=== PATIENT | male | born 1955 | race Hispanic/Latino ===

== ENCOUNTER 2022-01-20 05:43 | Emergency (ER) | payer OTHER ==
[2022-01-20 06:29] LABS: Absolute Lymphocytes (CBC) 2.2 K/uL (0.7-4.9); Hematocrit 50.3 % (39.6-49.0); Lymphocytes % 18.5 % (15.3-44.8); MCV 86.6 fL (80-100); MPV 8.3 fL (7.6-11.3); RBC Red Blood Cell Count 5.81 M/uL (4.33-5.43)
[2022-01-20 06:30] LABS: Protime INR 1.12
[2022-01-20 06:51] LABS: Potassium 3.3 mmol/L (3.5-5.1); Troponin High Sensitivity 13.7 pg/mL (<58.9)
--- NOTE | 2022-01-20 07:58 | RAD REPORT ---
EXAM DESCRIPTION: CT - Head Brain Wo Cont - 01/20/2022 7:45 am CLINICAL HISTORY: Dizziness COMPARISON: None. TECHNIQUE: Computed axial tomography of the head was obtained. IV contrast was not requested. All CT scans are performed using dose optimization technique as appropriate and may include automated exposure control or mA/KV adjustment according to patient size. FINDINGS: An intracranial bleed is not seen . The ventricles are normal in caliber. No significant hypodense areas within the brain visualized No extra-axial fluid collection is noted. Fluid within the sinuses/ mastoids is not seen. IMPRESSION: No acute intracranial abnormality is seen. If patient's symptoms persist MRI of the bra in would be recommended.
--- NOTE | 2022-01-20 08:04 | RAD REPORT ---
EXAM DESCRIPTION: CT - Angio Aorta For Dissection - 01/20/2022 7:45 am CLINICAL HISTORY: . Chest and abd pain COMPARISON: None TECHNIQUE: Computed tomography angiography of the chest, abdomen pelvis were obtained. 100 cc Isovue 370 was administered intravenously. Coronal and sagittal reconstruction were performed. MIP 3D reconstruction was performed All CT scans are performed using dose optimization technique as appropriate and may include automated exposure control or mA/KV adjustment according to patient size. FINDINGS: An aortic dissection is not seen. An aortic aneurysm is not displayed. The celiac, SMA and DARI are patent . A lung consolidation is not present. A pericardial effusion is not seen. A pleural effusion is not no anh. Fatty liver Spleen, pancreas,adrenals and kidneys demonstrate no significant abnormality. Moderate bilateral inguinal hernias contain fat. Small density within the gallbladder may indicate a gallstone. Gallbladder wall not thickened There no evidence diverticulitis. IMPRESSION: Negative for an aortic dissection.
--- NOTE | 2022-01-20 10:23 | ER ---
Nurse's Notes [facility] Name: Arnulfo Parra Age: 66 yrs Sex: Male : 1955 Arrival Date: 01/20/2022 Time: 05:51 Bed 13 Private MD: Diagnosis: Chest pain, unspecified;Essential (primary) hypertension Presentation: 01/20 06:05 Chief complaint: Patient states: BP running high x 3 days, felt lightheaded today with ke1 chest tightness that last around 15 seconds. Coronavirus screen: Vaccine status: Patient reports receiving the 2nd dose of the covid vaccine. Ebola Screen: No symptoms or risks identified at this time. Initial Sepsis Screen: Does the patient meet any 2 criteria? No. Patient's initial sepsis screen is negative. Does the patient have a suspected source of infection? No. Patient's initial sepsis screen is negative. Risk Assessment: Do you want to hurt yourself or someone else? Patient reports no desire to harm self or others. Onset of symptoms was January 17, 2022 at 00:00. 06:05 Method Of Arrival: Ambulatory ke1 06:05 Acuity: TRISTA 3 ke1 Triage Assessment: 06:09 General: Appears in no apparent distress. Behavior is appropriate for age. Pain: Denies ke1 pain. Historical: - Allergies: 06:08 No Known Allergies; ke1 - PMHx: 06:08 Hypertensive disorder; ke1 - Immunization history:: Client reports receiving the 2nd dose of the Covid vaccine. - Social history:: Smoking status: Patient denies any tobacco usage or history of. - Family history:: not pertinent. - Hospitalizations: : No recent hospitalization is reported. Screenin:09 [facility] ED Fall Risk Assessment (Adult) History of falling in the last 3 months, ke1 including since admission No falls in past 3 months (0 pts) Confusion or Disorientation No (0 pts) Intoxicated or Sedated No (0 pts) Impaired Gait No (0 pts) Mobility Assist Device Used No (0 pt) Altered Elimination No (0 pt) Score/Fall Risk Level 0 - 2 = Low Risk. Humpty Dumpty Scale Fall Assessment Tool (age< 18yrs) Age 13 years and above (1 pt) Gender Male (2 pts) Diagnosis Other diagnosis (1 pt) Cognitive Impairments Oriented to own ability (1 pt) Environmental Factors Outpatient area (1 pt) Response to Surgery/Sedation/Anesthesia More than 48 hours/None (1 pt) Medication Usage Other medications/ None (1 pt) Fall Risk Score/ Level Low Fall Risk: < 11 points. Abuse screen: Denies threats or abuse. Nutritional screening: No deficits noted. Tuberculosis screening: No symptoms or risk factors identified. Fall Risk No fall in past 12 months (0 pts). No secondary diagnosis (0 pts). No IV (0 pts). Ambulatory Aid- None/Bed Rest/Nurse Assist (0 pts). Gait- Normal/Bed Rest/Wheelchair (0 pts) Mental Status- Oriented to own ability (0 pts). Total Domingo Fall Scale indicates No Risk (0-24 pts). Assessment: 06:55 Reassessment: Patient denies pain at this time. Patient states feeling better. Patient ke1 states symptoms have improved. 07:33 Reassessment: Patient appears in no apparent distress at this time. Patient and/or db family updated on plan of care and expected duration. Pain level reassessed. Patient is alert, oriented x 3, equal unlabored respirations, skin warm/dry/pink. PATIENT TO CT. General: Appears in no apparent distress. comfortable, Behavior is calm, cooperative, appropriate for age, quiet. Pain: Denies pain. Neuro: No deficits noted. Level of Consciousness is awake, alert, obeys commands, Oriented to person, place, time, situation, Appropriate for age Moves all extremities. Speech is normal, Pupils are PERRLA. Cardiovascular: No deficits noted. Respiratory: Airway is patent Respiratory effort is even, unlabored, Respiratory pattern is regular, symmetrical. GI: No deficits noted. No signs and/or symptoms were reported involving the gastrointestinal system. : No deficits noted. No signs and/or symptoms were reported regarding the genitourinary system. 08:30 Reassessment: Patient appears in no apparent distress at this time. No changes from db previously documented assessment. Patient and/or family updated on plan of care and expected duration. Pain level reassessed. Patient is alert, oriented x 3, equal unlabored respirations, skin warm/dry/pink. 10:28 Reassessment: Patient appears in no apparent distress at this time. No changes from db previously documented assessment. Patient and/or family updated on plan of care and expected duration. Pain level reassessed. Patient is alert, oriented x 3, equal unlabored respirations, skin warm/dry/pink. Patient states feeling better. Vital Signs: 06:05 BP 149 / 97; Pulse 99; Resp 17; Temp 97.7(O); Pulse Ox 96% on R/A; Weight 104.33 kg; ke1 Height 5 ft. 7 in. (170.18 cm); Pain 0/10; 06:55 BP 142 / 102; Pulse 95; Resp 15; Pulse Ox 97% ; Pain 0/10; ke1 07:00 BP 134 / 100; Pulse 94; Resp 16; Temp 99.2(O); Pulse Ox 97% on R/A; Pain 0/10; db 08:12 BP 141 / 93; Pulse 83; Resp 16; Pulse Ox 97% on R/A; db 09:30 BP 146 / 98; Pulse 87; Resp 18; Pulse Ox 98% on R/A; db 06:05 Body Mass Index 36.02 (104.33 kg, 170.18 cm) ke1 ED Course: 05:51 Patient arrived in ED. bp1 05:51 Bruce Bliss MD is Attending Physician. rn 06:05 Marsha Rivero RN is Primary Nurse. ke1 06:08 Triage completed. ke1 06:10 Arm band placed on left wrist. ke1 06:10 Placed in gown. Bed in low position. Call light in reach. ke1 06:19 XRAY Chest (1 view) In Process Unspecified. EDMS 06:23 Inserted saline lock: 20 gauge in right forearm, using aseptic technique. ke1 06:23 Troponin HS Sent. ke1 06:23 PT-INR Sent. ke1 06:23 NT PRO-BNP Sent. ke1 06:23 CBC with Diff Sent. ke1 06:23 Basic Metabolic Panel Sent. ke1 07:47 Angio Aorta For Dissection In Process Unspecified. EDMS 07:47 Head Brain Wo Cont In Process Unspecified. EDMS 09:24 Primary Nurse role handed off by Marsha Rivero, RENAY db 09:24 Baylee Poe, RENAY is Primary Nurse. db 10:12 Attending Physician role handed off by Bruce Bliss MD ms3 10:12 Jez Bloom DO is Attending Physician. ms3 10:22 Farhan Nguyễn MD is Referral Physician. ms3 10:41 No provider procedures requiring assistance completed. IV discontinued, intact, db bleeding controlled, No redness/swelling at site. Administered Medications: No medications were administered Medication: 10:29 VIS not applicable for this client. db Outcome: 10:23 Discharge ordered by . ms3 10:41 Discharged to home ambulatory, with significant other. db 10:41 Condition: stable 10:41 Discharge instructions given to patient, significant other, Instructed on discharge instructions, follow up and referral plans. Demonstrated understanding of instructions, follow-up care, medications, Prescriptions given X 1. 10:42 Patient left the ED. db Signatures: Dispatcher [employer] EDMS Bruce Bliss MD MD rn Jez Bloom DO DO ms3 Jaz Smart Kouassi, RN RN ke1 Baylee Poe, RN RN db
--- NOTE | 2022-01-20 10:23 | EDPHYS ---
Physician Documentation [facility] Name: Arnulfo Parra Age: 66 yrs Sex: Male : 1955 Arrival Date: 01/20/2022 Time: 05:51 Bed 13 Private MD: ED Physician Jez Bloom HPI: 01/20 06:47 This 66 yrs old Male presents to ER via Ambulatory with complaints of High rn Blood Pressure. 06:47 The patient has elevated blood pressure and discovered this at home. Onset: The rn symptoms/episode began/occurred 2 day(s) ago. Modifying factors: The symptoms are aggravated by discontinuation of meds, The symptoms are alleviated by nothing. Associated signs and symptoms: Pertinent positives: chest pain, headache, Pertinent negatives: dizziness, nausea, vomiting, weakness. Severity of symptoms: At its worst the blood pressure was moderate, in the emergency department the blood pressure is unchanged. The patient has experienced similar episodes in the past. The patient has not recently seen a physician. Pt reports off of his BP meds for 2 years, recently noticed increase in BP for last 2 days. Reports chest pain that is intermittent and lasts approx 15 sec, no radiation, no sob. Also reports headache and normally doesn't get headache. No focal neuro complaints. No trauma. . Historical: - Allergies: 06:08 No Known Allergies; ke1 - PMHx: 06:08 Hypertensive disorder; ke1 - Immunization history:: Client reports receiving the 2nd dose of the Covid vaccine. - Social history:: Smoking status: Patient denies any tobacco usage or history of. - Family history:: not pertinent. - Hospitalizations: : No recent hospitalization is reported. ROS: 06:47 Constitutional: Negative for fever, chills, and weight loss, Eyes: Negative for injury, rn pain, redness, and discharge, Neck: Negative for injury, pain, and swelling, Cardiovascular: + chest pain Respiratory: Negative for shortness of breath, cough, wheezing, and pleuritic chest pain, Abdomen/GI: Negative for abdominal pain, nausea, vomiting, diarrhea, and constipation, Back: Negative for injury and pain, : Negative for injury, bleeding, discharge, and swelling, MS/Extremity: Negative for injury and deformity, Skin: Negative for injury, rash, and discoloration, Neuro: + headache Exam: 06:47 Constitutional: This is a well developed, well nourished patient who is awake, alert, rn and in no acute distress. Head/Face: Normocephalic, atraumatic. Eyes: Pupils equal round and reactive to light, extra-ocular motions intact. Periorbital areas with no swelling, redness, or edema. Cardiovascular: Regular rate and rhythm. No pulse deficits. Respiratory: No increased work of breathing, no retractions or nasal flaring. Abdomen/GI: Soft, non-tender Skin: Warm, dry MS/ Extremity: Pulses equal, no cyanosis. Neuro: Awake and alert, GCS 15, oriented to person, place, time, and situation. Cranial nerves II-XII grossly intact. Motor strength 5/5 in all extremities. Sensory grossly intact. Cerebellar exam normal. Vital Signs: 06:05 BP 149 / 97; Pulse 99; Resp 17; Temp 97.7(O); Pulse Ox 96% on R/A; Weight 104.33 kg; ke1 Height 5 ft. 7 in. (170.18 cm); Pain 0/10; 06:55 BP 142 / 102; Pulse 95; Resp 15; Pulse Ox 97% ; Pain 0/10; ke1 07:00 BP 134 / 100; Pulse 94; Resp 16; Temp 99.2(O); Pulse Ox 97% on R/A; Pain 0/10; db 08:12 BP 141 / 93; Pulse 83; Resp 16; Pulse Ox 97% on R/A; db 09:30 BP 146 / 98; Pulse 87; Resp 18; Pulse Ox 98% on R/A; db 06:05 Body Mass Index 36.02 (104.33 kg, 170.18 cm) [facility] MDM: 05:52 Patient medically screened. rn 07:00 Transition of care: Care assumed from Bruce Bliss MD. ms3 10:20 Data reviewed: vital signs, nurses notes, lab test result(s), EKG, radiologic studies, ms3 and as a result, I will discharge patient. Counseling: I had a detailed discussion with the patient and/or guardian regarding: the historical points, exam findings, and any diagnostic results supporting the discharge/admit diagnosis, lab results, radiology results, the need for outpatient follow up, to return to the emergency department if symptoms worsen or persist or if there are any questions or concerns that arise at home. ED course: Discussed labs, EKG, chest x-ray, CT with the patient and his . Patient to follow-up with Dr. Nguyễn in 2 to 3 days. Patient to follow-up with primary care physician in 2 to 3 days. Patient's prescription for lisinopril/hydrochlorothiazide 20/25 refilled for 20 days. Patient is understand and agree with plan. All questions were answered. Return precautions discussed to include worsening symptoms, chest pain, nausea, vomiting, shortness of breath, or any other concerns. 01/20 06:06 Order name: Basic Metabolic Panel; Complete Time: 06:58 rn 01/20 06:06 Order name: CBC with Diff; Complete Time: 06:58 rn 01/20 06:06 Order name: NT PRO-BNP; Complete Time: 06:58 rn 01/20 06:06 Order name: PT-INR; Complete Time: 06:58 rn 01/20 06:06 Order name: Troponin HS; Complete Time: 06:58 rn 01/20 06:06 Order name: XRAY Chest (1 view) rn 01/20 06:06 Order name: EKG; Complete Time: 06:07 rn 01/20 06:06 Order name: Cardiac monitoring; Complete Time: 06:11 rn 01/20 06:06 Order name: EKG - Nurse/Tech; Complete Time: 06:11 rn 01/20 07:14 Order name: Angio Aorta For Dissection; Complete Time: 10:12 EDMS 01/20 07:16 Order name: Head Brain Wo Cont; Complete Time: 10:12 EDMS 01/20 06:06 Order name: IV Saline Lock; Complete Time: 06:23 rn 01/20 06:06 Order name: Labs collected and sent; Complete Time: 06:23 rn 01/20 06:06 Order name: O2 Per Protocol; Complete Time: 06:11 rn 01/20 06:06 Order name: O2 Sat Monitoring; Complete Time: 06:11 rn Administered Medications: No medications were administered Disposition Summary: 01/20/22 10:23 Discharge Ordered Location: Home ms3 Condition: Stable ms3 Diagnosis - Chest pain, unspecified ms3 - Essential (primary) hypertension ms3 Followup: ms3 - With: Farhan Nguyễn MD - When: 2 - 3 days - Reason: Recheck today's complaints Followup: ms3 - With: Private Physician - When: 2 - 3 days - Reason: Recheck today's complaints Discharge Instructions: - Discharge Summary Sheet ms3 - Nonspecific Chest Pain, Adult ms3 - Hypertension, Adult ms3 Forms: - Medication Reconciliation Form ms3 - Thank You Letter ms3 - Antibiotic Education ms3 - Prescription Opioid Use ms3 Prescriptions: - Lisinopril-Hydrochlorothiazide 20-25 mg Oral Tablet - take 1 tablet by ORAL route once daily; 20 tablet; Refills: 0, Product ms3 Selection Permitted Signatures: Dispatcher [employer] EDMS Bruce Bliss MD MD rn Jez Bloom DO DO ms3 Marsha Rivero RN RN ke1 Corrections: (The following items were deleted from the chart) 07:14 07:14 CT-HEAD/BRAIN W/O CONTRAST ordered. EDMS EDMS
[2022-01-20 11:06] VITALS: TEMP 99.2
[2022-01-20 11:09] VITALS: BP 146/98; O2SAT 98
--- NOTE | 2022-01-20 14:56 | EKG ---
Test Date: 2022-01-20 Test Time: 06:01:29 Spindle Carver: STEPHANIE MEASUREMENT RESULTS: Intervals: Rate: 96 [place]: 170 QRSD: 86 QT: 350 QTc: 442 [place]: P: 49 NJ: 170 QRS: 12 T: 33 INTERPRETIVE STATEMENTS: Sinus rhythm with occasional premature ventricular complexes Otherwise normal ECG No previous ECG available for comparison Electronically Signed On 01-20-22 14:54:55 FREIGHT CONDUCTOR by Farhan Nguyễn
--- NOTE | 2022-01-20 15:12 | RAD REPORT ---
EXAM DESCRIPTION: RAD - Chest Single View - 01/20/2022 6:17 am CLINICAL HISTORY: The patient is 66 years old and is Male; HTN TECHNIQUE: Single view of the chest. COMPARISON: No relevant prior studies available. FINDINGS: Lungs: No pulmonary vascular congestion or consolidation. Pleural space: Unremarkable. No pneumothorax. Heart: Unremarkable. No cardiomegaly. Mediastinum: Unremarkable. Bones/joints: No acute fracture visualized. Old healed fracture right clavicle. Upper abdomen: No free air in the visualized upper abdomen. IMPRESSION: No acute cardiopulmonary process identified. Electronically signed by: Annamaria Carter MD 01/20/2022 6:29 AM AGRONOMY INSTRUCTOR Due to temporary technical issues with the PACS/Fluency reporting system, reports are being signed by the in house radiologists without review as a courtesy to insure prompt reporting. The interpreting radiologist is fully responsible for the content of the report.
== END 2022-01-20 10:42 | disposition home or self-care (01) ==
LOC: ER 05:43
DX: R07.89 Other chest pain (principal); I10 Essential (primary) hypertension
CPT/HCPCS: 93005; 85025; 80048; 36415; 85610; 84484; 83880; 70450; 71275; 74175; 71045; Q9967; 99284

== ENCOUNTER 2022-06-27 18:04 | Emergency (ER) | payer OTHER ==
--- NOTE | 2022-06-27 18:34 | RAD REPORT ---
EXAM DESCRIPTION: RAD - Chest Single View - 06/27/2022 6:26 pm CLINICAL HISTORY: nausea, malaise Chest pain. COMPARISON: <Comparisons> FINDINGS: Portable technique limits examination quality. The lungs are grossly clear. The heart is normal in size. No displaced fractures. IMPRESSION: No acute intrathoracic process suspected.
[2022-06-27] MEDS ORDERED: NA CHLORIDE 0.9% 250 ML ONE (18:45)
[2022-06-27] MEDS ORDERED: PROMETHAZINE INJ 25 MG/ML AMP ONE (18:45)
[2022-06-27] MEDS ORDERED: MORPHINE 4 MG/ML SYR ONE (18:46)
[2022-06-27 18:47] LABS: Absolute Lymphocytes (CBC) 1.2 K/uL (0.7-4.9); Lymphocytes % 8.5 % (15.3-44.8); MCV 88.5 fL (80-100); MPV 8.9 fL (7.6-11.3); RBC Red Blood Cell Count 5.43 M/uL (4.33-5.43)
[2022-06-27 18:48] LABS: Protime INR 1.06
[2022-06-27 19:00] LABS: Albumin 4.8 g/dL (3.4-5.0); Bilirubin Direct 0.3 mg/dL (0-0.2); Bilirubin Indirect, Calculated 0.6 mg/dL (0.2-0.8); Bilirubin Total 0.9 mg/dL (0.2-1.0); Protein, Total 8.3 g/dL (6.4-8.2); Troponin High Sensitivity 6.2 pg/mL (<58.9)
--- NOTE | 2022-06-27 19:04 | RAD REPORT ---
EXAM DESCRIPTION: CT - Stone Protocol - 06/27/2022 6:55 pm CLINICAL HISTORY: Flank pain. FLANK PAIN COMPARISON: No comparisons TECHNIQUE: Axial images were obtained without oral or IV contrast. Lack of contrast limits solid org an and vascular assessment. The [id number] spans the entirety of the system partially obscuring uppermost abdomen and lung bases. Coronal reformatted images were obtained and reviewed. All CT scans are performed using dose optimization technique as appropriate and may include automated exposure control or mA/KV adjustment according to patient size. FINDINGS: The lower lung aguiar are clear. Small hiatal hernia. Imaged portions of the liver and spleen show no suspicious findings on non-contrast imaging. The panc reas and adrenal glands are normal. No pathologic lymphadenopathy in the abdomen or pelvis. 7 mm stone right UVJ results in moderate right hydroureter and hydronephrosis. Additional small calcu li left kidney inferiorly. No left-sided hydronephrosis. No bowel obstruction, free air, free fluid or abscess. Normal appendix noted.Small bilateral fat cont aining inguinal hernias. Mild lumbar degenerative changes. IMPRESSION: 7 mm stone right UVJ resulting in moderate right hydronephrosis. Nonobstructing left renal calculus inferiorly.
[2022-06-27] MEDS ORDERED: TAMSULOSIN 0.4 MG SR CAP ONE (19:22)
[2022-06-27] MEDS ORDERED: KETOROLAC 30 MG/ML INJ ONE (19:22)
[2022-06-27] MEDS ORDERED: KCL 20 MEQ/100 mL IVPB 100 ML IV ONE (19:23)
[2022-06-27] MEDS ORDERED: NA CHLORIDE 0.9% 1,000 ML ONE (19:23)
--- NOTE | 2022-06-27 21:54 | EDPHYS ---
Physician Documentation [facility] Name: Arnulfo Parra Age: 67 yrs Sex: Male : 1955 Arrival Date: 06/27/2022 Time: 18:04 Bed 8 Private MD: ED Physician Bruce Bliss HPI: 06/27 20:32 This 67 yrs old Male presents to ER via Ambulatory with complaints of Back snw Pain, Nausea, Dizziness. 20:32 The patient presents with pain and tenderness, and weakness. The symptoms are located snw in the low back. Onset: The symptoms/episode began/occurred gradually, 1 week(s) ago, and became persistent. The problem was sustained being tx for UTI. Severity of symptoms: At their worst the symptoms were moderate, severe. The patient has experienced similar episodes in the past. Historical: - Allergies: 18:16 Amoxicillin; hb - Home Meds: 18:15 None [Active]; hb - PMHx: 18:15 Hypertensive disorder; hb - PSHx: 18:15 None; hb - Immunization history:: Adult Immunizations up to date. - Social history:: Smoking status: Patient denies any tobacco usage or history of. ROS: 18:21 Constitutional: Negative for fever, chills, and weight loss, Eyes: Negative for injury, snw pain, redness, and discharge, ENT: Negative for injury, pain, and discharge, Neck: Negative for injury, pain, and swelling, Cardiovascular: Negative for chest pain, palpitations, and edema, Respiratory: Negative for shortness of breath, cough, wheezing, and pleuritic chest pain, : Negative for injury, bleeding, discharge, and swelling, MS/Extremity: Negative for injury and deformity, Skin: Negative for injury, rash, and discoloration, Neuro: Negative for headache, weakness, numbness, tingling, and seizure, Psych: Negative for depression, anxiety, suicide ideation, homicidal ideation, and hallucinations. 18:21 Abdomen/GI: Positive for abdominal pain, nausea, vomiting. 18:21 Back: Positive for flank pain, on the right, radiated pain, of the right low back. Exam: 18:17 Head/Face: Normocephalic, atraumatic. Eyes: Pupils equal round and reactive to light, snw extra-ocular motions intact. Lids and lashes normal. Conjunctiva and sclera are non-icteric and not injected. Cornea within normal limits. Periorbital areas with no swelling, redness, or edema. ENT: Nares patent. No nasal discharge, no septal abnormalities noted. Tympanic membranes are normal and external auditory canals are clear. Oropharynx with no redness, swelling, or masses, exudates, or evidence of obstruction, uvula midline. Mucous membranes moist. Neck: Trachea midline, no thyromegaly or masses palpated, and no cervical lymphadenopathy. Supple, full range of motion without nuchal rigidity, or vertebral point tenderness. No Meningismus. Chest/axilla: Normal chest wall appearance and motion. Nontender with no deformity. No lesions are appreciated. Cardiovascular: Regular rate and rhythm with a normal S1 and S2. No gallops, murmurs, or rubs. Normal PMI, no JVD. No pulse deficits. Respiratory: Lungs have equal breath sounds bilaterally, clear to auscultation and percussion. No rales, rhonchi or wheezes noted. No increased work of breathing, no retractions or nasal flaring. 18:17 Skin: Warm, dry with normal turgor. Pale color with no rashes, no lesions, and no evidence of cellulitis. MS/ Extremity: Pulses equal, no cyanosis. Neurovascular intact. Full, normal range of motion. Neuro: Awake and alert, GCS 15, oriented to person, place, time, and situation. Cranial nerves II-XII grossly intact. Motor strength 5/5 in all extremities. Sensory grossly intact. Cerebellar exam normal. Normal gait. Psych: Awake, alert, with orientation to person, place and time. Behavior, mood, and affect are within normal limits. 18:17 Constitutional: The patient appears alert, anxious, pale, uncomfortable. 18:17 Abdomen/GI: Inspection: abdomen appears normal, Palpation: moderate abdominal tenderness, in the posterior aspect of right lateral abdomen and right lower quadrant. 18:17 Back: pain, that is moderate, of the right low back. Vital Signs: 18:15 BP 191 / 93; Pulse 74; Resp 18; Temp 97.8(O); Pulse Ox 99% on R/A; Weight 99.79 kg; hb Height 5 ft. 7 in. ; Pain 10/10; 18:55 BP 166 / 69; Pulse 78; Resp 18; Pulse Ox 100% on R/A; Pain 10/10; mb9 18:15 Body Mass Index 34.46 (99.79 kg, 170.18 cm) hb 18:15 Pain Scale: Adult hb 18:55 Pain Scale: Adult mb9 MDM: 18:09 Patient medically screened. snw 18:22 Data reviewed: vital signs, nurses notes. Counseling: I had a detailed discussion with shannan the patient and/or guardian regarding: the historical points, exam findings, and any diagnostic results supporting the discharge/admit diagnosis, the presence of at least one elevated blood pressure reading (>120/80) during this emergency department visit. 21:34 Differential diagnosis: Osteoporosis Ureterolithiasis. Response to treatment: the [facility] patient's symptoms have markedly improved after treatment. 21:52 ED course: 2100 up to void, did not collect urine. snw 06/27 18:17 Order name: Basic Metabolic Panel; Complete Time: 19:04 snw 06/27 18:17 Order name: CBC with Diff; Complete Time: 18:56 snw 06/27 18:17 Order name: LFT's; Complete Time: 19:04 snw 06/27 18:17 Order name: Magnesium; Complete Time: 19:04 snw 06/27 18:17 Order name: NT PRO-BNP; Complete Time: 19:04 snw 06/27 18:17 Order name: PT-INR; Complete Time: 18:50 snw 06/27 18:17 Order name: Troponin HS; Complete Time: 19:04 snw 06/27 21:52 Order name: Urine W/Microscopic (UAM) w 06/27 18:17 Order name: XRAY Chest (1 view); Complete Time: 18:42 snw 06/27 18:17 Order name: CT Stone Protocol; Complete Time: 19:06 snw 06/27 18:17 Order name: EKG; Complete Time: 18:18 snw 06/27 18:17 Order name: Cardiac monitoring; Complete Time: 18:19 snw 06/27 18:17 Order name: EKG - Nurse/Tech; Complete Time: 18:35 snw 06/27 18:17 Order name: IV Saline Lock; Complete Time: 18:35 snw 06/27 18:17 Order name: Labs collected and sent; Complete Time: 18:35 snw 06/27 18:17 Order name: O2 Per Protocol; Complete Time: 18: snw 06/27 18:17 Order name: O2 Sat Monitoring; Complete Time: 18: snw EC:30 Rate is 73 beats/min. Rhythm is irregular. QRS [place] is Normal. MT interval is normal. snw Clinical impression: NSR w/ Non-specific ST/T Changes. Administered Medications: 18:38 Drug: Promethazine IVP 25 mg Route: IVP; Site: right antecubital; mb9 19:35 Follow up: Response: No adverse reaction lg3 18:38 Drug: NS 0.9% IV 250 ml Route: IV; Rate: bolus; Site: right antecubital; mb9 22:10 Follow up: IV Status: Completed infusion; IV Intake: 1000ml kd3 18:42 Drug: morphine IVP or IV 4 mg Route: IVP; Infused Over: 4 mins; Site: right antecubital;mb9 19:36 Follow up: Response: No adverse reaction lg3 19:35 Drug: Potassium Chloride IV 20 mEq Route: IV; Rate: calculated rate; Site: right lg3 antecubital; 21:14 Follow up: Response: No adverse reaction; IV Status: Completed infusion; IV Intake: vc1 100ml 19:35 Drug: Flomax PO 0.4 mg Route: PO; lg3 20:42 Follow up: Response: No adverse reaction lg3 19:35 Drug: Ketorolac IVP 30 mg Route: IVP; Site: right antecubital; lg3 20:42 Follow up: Response: No adverse reaction; Marked relief of symptoms lg3 19:35 Drug: NS 0.9% IV 1000 ml Route: IV; Rate: 1 bolus; Site: right antecubital; lg3 20:42 Follow up: IV Status: Completed infusion; IV Intake: 1000ml lg3 19:35 Drug: Ondansetron IVP 4 mg Route: IVP; Site: right antecubital; lg3 20:42 Follow up: Response: No adverse reaction; Marked relief of symptoms lg3 Disposition Summary: 06/27/22 21:53 Discharge Ordered Location: Home snw Condition: Stable snw Diagnosis - Hydronephrosis with renal and ureteral calculous obstruction snw - Hypokalemia snw Followup: snw - With: Private Physician - When: 2 - 3 days - Reason: Recheck today's complaints, Continuance of care, Re-evaluation by your physician Discharge Instructions: - Discharge Summary Sheet snw - Renal Colic snw - Hydronephrosis snw - Dietary Guidelines to Help Prevent Kidney Stones snw - Rehydration, Adult snw Forms: - Medication Reconciliation Form snw - Thank You Letter snw - Antibiotic Education snw - Prescription Opioid Use snw Prescriptions: - tamsulosin 0.4 mg Oral capsule - take 1 capsule by ORAL route every day at bedtime; 15 capsule; Refills: 0, snw Product Selection Permitted - Cipro 500 mg Oral Tablet - take 1 tablet by ORAL route every 12 hours for 7 days; 14 tablet; Refills: 0, snw Product Selection Permitted - promethazine 25 mg Oral Tablet - take 1 tablet by ORAL route every 6 hours As needed; 20 tablet; Refills: 0, snw Product Selection Permitted Signatures: Dispatcher [employer] EDMS Kelley No, JUTE BAG CLIPPER-C JUTE BAG CLIPPER-Csnw Rosalva Ledesma, RN RN Inés Gayle RN RN lg3 Agnieszka Hendrix RN RN mb9 Marnie Johnson RN kd3 Celine Martínez RN vc1 Corrections: (The following items were deleted from the chart) 18:16 18:15 Allergies: No Known Allergies; hb hb 18:16 18:15 Allergies: PENICILLINS; hb hb
--- NOTE | 2022-06-27 21:54 | ER ---
Nurse's Notes [facility] Name: Arnulfo Parra Age: 67 yrs Sex: Male : 1955 Arrival Date: 06/27/2022 Time: 18:04 Bed 8 Private MD: Diagnosis: Hydronephrosis with renal and ureteral calculous obstruction;Hypokalemia Presentation: 06/27 18:14 Chief complaint: Sudden onset back pain that radiates to lower abdomen and nausea this afternoon. Coronavirus screen: At this time, the client does not indicate any symptoms associated with coronavirus-19. Ebola Screen: No symptoms or risks identified at this time. Initial Sepsis Screen: Does the patient meet any 2 criteria? No. Patient's initial sepsis screen is negative. Does the patient have a suspected source of infection? No. Patient's initial sepsis screen is negative. Risk Assessment: Do you want to hurt yourself or someone else? Patient reports no desire to harm self or others. Onset of symptoms was June 27, 2022. 18:14 Method Of Arrival: Ambulatory hb 18:14 Acuity: TRISTA 3 hb Historical: - Allergies: 18:16 Amoxicillin; hb - Home Meds: 18:15 None [Active]; hb - PMHx: 18:15 Hypertensive disorder; hb - PSHx: 18:15 None; hb - Immunization history:: Adult Immunizations up to date. - Social history:: Smoking status: Patient denies any tobacco usage or history of. Screenin:35 [facility] ED Fall Risk Assessment (Adult) History of falling in the last 3 months, mb9 including since admission No falls in past 3 months (0 pts) Confusion or Disorientation No (0 pts) Intoxicated or Sedated No (0 pts) Impaired Gait No (0 pts) Mobility Assist Device Used No (0 pt) Altered Elimination No (0 pt) Score/Fall Risk Level 0 - 2 = Low Risk Oriented to surroundings, Maintained a safe environment, Educated pt \T\ family on fall prevention, incl call for assistance when getting out of bed. Abuse screen: Denies threats or abuse. Nutritional screening: No deficits noted. Tuberculosis screening: No symptoms or risk factors identified. Assessment: 18:53 General: Appears uncomfortable, Behavior is cooperative, appropriate for age. Pain: mb9 Complains of pain in right lower quadrant Pain radiates to right low back and posterior aspect of right lateral abdomen Pain currently is 10 out of 10 on a pain scale. Quality of pain is described as gnawing, Pain began suddenly, Is continuous. Neuro: Lao Agitation-Sedation Scale (RASS): 0 - Alert and Calm Level of Consciousness is awake, alert, obeys commands, Oriented to person, place, time, situation, Appropriate for age. Cardiovascular: Patient's skin is warm and dry. Respiratory: Airway is patent Respiratory effort is even, unlabored, Respiratory pattern is regular, symmetrical. GI: Abdomen is round non-distended, Bowel sounds present X 4 quads. Abd is soft Abdomen is tender to palpation in right lower quadrant Reports flatulence, gaseousness. Derm: Skin is pink, warm \T\ dry. Musculoskeletal: Range of motion: intact in all extremities. 19:36 General: Appears in no apparent distress. uncomfortable, Behavior is calm, cooperative. lg3 Pain: Complains of pain in right low back and right lower quadrant and posterior aspect of right lateral abdomen Pain currently is 8 out of 10 on a pain scale. Neuro: No deficits noted. Lao Agitation-Sedation Scale (RASS): 0 - Alert and Calm Level of Consciousness is awake, alert, obeys commands, Oriented to person, place, time, situation. Cardiovascular: No deficits noted. Denies chest pain, shortness of breath, Capillary refill < 3 seconds Clubbing of nail beds is absent JVD is absent Patient's skin is warm and dry. Respiratory: No deficits noted. Airway is patent Respiratory effort is even, unlabored, Respiratory pattern is regular, symmetrical. GI: Abdomen is round non-distended, Reports lower abdominal pain, cramping, gaseousness. : No deficits noted. EENT: No deficits noted. No signs and/or symptoms were reported regarding the EENT system. Derm: No deficits noted. No signs and/or symptoms reported regarding the dermatologic system. Skin is intact, is healthy with good turgor, Skin is dry, Skin is normal. Musculoskeletal: No deficits noted. No signs and/or symptoms reported regarding the musculoskeletal system. Circulation, motion, and sensation intact. Range of motion: intact in all extremities. 20:35 Reassessment: Patient appears in no apparent distress at this time. No changes from lg3 previously documented assessment. Patient and/or family updated on plan of care and expected duration. Pain level reassessed. Patient is alert, oriented x 3, equal unlabored respirations, skin warm/dry/pink. Patient states feeling better. Vital Signs: 18:15 BP 191 / 93; Pulse 74; Resp 18; Temp 97.8(O); Pulse Ox 99% on R/A; Weight 99.79 kg; hb Height 5 ft. 7 in. ; Pain 10/10; 18:55 BP 166 / 69; Pulse 78; Resp 18; Pulse Ox 100% on R/A; Pain 10/10; mb9 18:15 Body Mass Index 34.46 (99.79 kg, 170.18 cm) hb 18:15 Pain Scale: Adult hb 18:55 Pain Scale: Adult mb9 ED Course: 18:05 Patient arrived in ED. mr 18:09 Kelley No[facility] snw 18:09 Bruce Bliss MD is Attending Physician. snw 18:15 Triage completed. hb 18:15 Arm band placed on. hb 18:18 Agnieszka Hendrix, RN is Primary Nurse. mb9 18:28 XRAY Chest (1 view) In Process Unspecified. EDMS 18:35 Basic Metabolic Panel Sent. mb9 18:35 CBC with Diff Sent. mb9 18:35 LFT's Sent. mb9 18:35 Magnesium Sent. mb9 18:35 NT PRO-BNP Sent. mb9 18:35 PT-INR Sent. mb9 18:35 Troponin HS Sent. mb9 18:36 Placed in gown. Bed in low position. Call light in reach. Side rails up X 1. Client mb9 placed on continuous cardiac and pulse oximetry monitoring. NIBP monitoring applied. ekg monitor on. 18:57 CT Stone Protocol In Process Unspecified. EDMS 18:59 No provider procedures requiring assistance completed. mb9 19:36 Door closed. Noise minimized. Warm blanket given. Family accompanied patient. lg3 19:36 IV is patent, 20G RA inserted by previous shift. lg3 22:09 Urine W/Microscopic (UAM) Sent. kd3 22:09 IV discontinued, intact, bleeding controlled, No redness/swelling at site. Pressure kd3 dressing applied. Administered Medications: 18:38 Drug: Promethazine IVP 25 mg Route: IVP; Site: right antecubital; mb9 19:35 Follow up: Response: No adverse reaction lg3 18:38 Drug: NS 0.9% IV 250 ml Route: IV; Rate: bolus; Site: right antecubital; mb9 22:10 Follow up: IV Status: Completed infusion; IV Intake: 1000ml kd3 18:42 Drug: morphine IVP or IV 4 mg Route: IVP; Infused Over: 4 mins; Site: right antecubital;mb9 19:36 Follow up: Response: No adverse reaction lg3 19:35 Drug: Potassium Chloride IV 20 mEq Route: IV; Rate: calculated rate; Site: right lg3 antecubital; 21:14 Follow up: Response: No adverse reaction; IV Status: Completed infusion; IV Intake: vc1 100ml 19:35 Drug: Flomax PO 0.4 mg Route: PO; lg3 20:42 Follow up: Response: No adverse reaction lg3 19:35 Drug: Ketorolac IVP 30 mg Route: IVP; Site: right antecubital; lg3 20:42 Follow up: Response: No adverse reaction; Marked relief of symptoms lg3 19:35 Drug: NS 0.9% IV 1000 ml Route: IV; Rate: 1 bolus; Site: right antecubital; lg3 20:42 Follow up: IV Status: Completed infusion; IV Intake: 1000ml lg3 19:35 Drug: Ondansetron IVP 4 mg Route: IVP; Site: right antecubital; lg3 20:42 Follow up: Response: No adverse reaction; Marked relief of symptoms lg3 Medication: 18:36 VIS not applicable for this client. mb9 Intake: 20:42 IV: 1000ml; Total: 1000ml. lg3 21:14 IV: 100ml; Total: 1100ml. vc1 22:10 IV: 1000ml; Total: 2100ml. kd3 Outcome: 21:53 Discharge ordered by MD. campbell 22:09 Discharged to home ambulatory. kd3 22:09 Condition: stable 22:09 Discharge instructions given to patient, family, Instructed on discharge instructions, follow up and referral plans. Demonstrated understanding of instructions, follow-up care, medications, Prescriptions given X 3. 22:11 Patient left the ED. kd3 Signatures: Dispatcher [employer] Kelley Guerrero FNP-C FNP-Csnw Agnieszka KirkpatrickRosalva RN RN hb Inés Gayle, RN RN lg3 Marnie Johnson RN RN kd3 Celine Martínez RN RN vc1 Agnieszka Hendrix RN RN mb9 Corrections: (The following items were deleted from the chart) 18:16 18:15 Allergies: No Known Allergies; hb hb 18:16 18:15 Allergies: PENICILLINS; hb hb 18:17 18:15 Pulse 74bpm; hb hb
[2022-06-27 22:17] VITALS: TEMP 97.8
[2022-06-27 22:18] VITALS: BP 166/69; O2SAT 100
[2022-06-27 22:21] LABS: Specific Gravity 1.011 (1.005-1.030); Urine Bacteria <20 /HPF (<20); Urine Bilirubin NEGATIVE (Negative); Urine Blood 2+ (Negative); Urine Clarity Clear (Clear); Urine Color Light-Yellow (Yellow); Urine Glucose NEGATIVE (Negative); Urine Protein NEGATIVE (Negative); Urine RBC 21-50 /HPF (None Seen); Urine Urobilinogen Normal (Normal); Urine pH 7.5 (5.0-7.0)
--- NOTE | 2022-06-29 17:35 | EKG ---
Test Date: 2022-06-27 Test Time: 18:26:20 Redye Hand: MB MEASUREMENT RESULTS: Intervals: Rate: 73 CA: 216 QRSD: 76 QT: 414 QTc: 456 [place]: P: 32 CA: 216 QRS: -1 T: 41 INTERPRETIVE STATEMENTS: Sinus rhythm with 1st degree AV block Possible Inferior infarct, age undetermined Cannot rule out Anterior infarct, age undetermined Abnormal ECG Compared to ECG 01/20/2022 06:01:29 First degree AV block now present Myocardial infarct finding now present Myocardial infarct finding now present Ventricular premature complex(es) no longer present Electronically Signed On 06-29-22 17:33:53 CDT by Farhan Nguyễn
== END 2022-06-27 22:11 | disposition home or self-care (01) ==
LOC: ER 18:04
DX: N13.2 Hydronephrosis with renal and ureteral calculous obstruction (principal); E87.6 Hypokalemia; I10 Essential (primary) hypertension; Z88.1 Allergy status to other antibiotic agents
CPT/HCPCS: 93005; 85025; 81001; 80048; 36415; 83735; 85610; 80076; 84484; 83880; 76377; 74176; 71045; J2550; J3480; J7050; J7030